=== PATIENT | female | born 1970 | race Asian ===

== ENCOUNTER 2018-10-12 09:23 | Outpatient (CLI) | payer OTHER ==
--- NOTE | 2018-10-12 10:13 | MMO ---
Bilateral MAMMO Bilat Screen DDI. CLINICAL HISTORY: Patient is 48 years old and is seen for screening. The patient has no family history of breast cancer. The patient has no personal history of cancer. VIEWS: The views performed were: bilateral craniocaudal and bilateral mediolateral oblique. This study has been interpreted with the assistance of computer-aided detection. MAMMOGRAM FINDINGS: The breasts are heterogeneously dense, which could obscure a lesion on mammography. There is an equal density, round mass measuring 8 millimeters with circumscribed margins seen in the upper-outer region of the left breast. This likely represents a lymph node, but overlying vessels precludes adequate evaluation. In the right breast, there are no suspicious masses, calcifications or areas of architectural distortion. IMPRESSION: MASS IN THE LEFT BREAST REQUIRES ADDITIONAL EVALUATION. AN ULTRASOUND EXAM IS RECOMMENDED IF NEEDED. SPOT MAGNIFICATION VIEW(S) ARE RECOMMENDED. ACR BI-RADS Category 0 - Incomplete: Need additional imaging evaluation. [facility] will notify the patient of the need for additional imaging services. MAMMOGRAPHY NOTE: 1. A negative mammogram report should not delay a biopsy if a dominant of clinically suspicious mass is present. 2. Approximately 10% to 15% of breast cancers are not detected by mammography. 3. Adenosis and dense breasts may obscure an underlying neoplasm.
== END 2018-10-12 09:24 | disposition home or self-care (01) ==
LOC: SCSMAMMO 09:23
PROVIDERS: ATTEND Family Medicine
DX: Z12.31 Encounter for screening mammogram for malignant neoplasm of breast (principal); N63.20 Unspecified lump in the left breast, unspecified quadrant
CPT/HCPCS: 77067

== ENCOUNTER 2019-01-09 09:09 | Outpatient (CLI) | payer OTHER ==
--- NOTE | 2019-01-09 10:06 | MMO ---
Left Breast MAMMO Unilat Diag DDI LT+JAIME. CLINICAL HISTORY: Patient is 48 years old and is seen for additional evaluation requested from prior study. The patient has no family history of breast cancer. The patient has no personal history of cancer. VIEWS: The views performed were: left craniocaudal spot compression with tomosynthesis; left mediolateral oblique spot compression with tomosynthesis; left mediolateral with tomosynthesis; and left exaggerated craniocaudal spot compression with tomosynthesis. FILMS COMPARED: The present examination has been compared to a prior imaging study performed at [facility] on 10/12/2018. This study has been interpreted with the assistance of computer-aided detection. MAMMOGRAM FINDINGS: The breast is heterogeneously dense, which could obscure a lesion on mammography. There is an intramammary lymph node seen in the upper-outer region of the left breast, correlating with the finding on recent screening examination. There are no suspicious masses, calcifications or areas of architectural distortion. There are no suspicious masses, suspicious calcifications, or new areas of architectural distortion. IMPRESSION: THERE IS NO MAMMOGRAPHIC EVIDENCE OF MALIGNANCY. A ROUTINE FOLLOW-UP MAMMOGRAM IN 1 YEAR IS RECOMMENDED. 3BTHE RESULTS OF THIS EXAM WERE SENT TO THE PATIENT.0B ACR BI-RADS Category 2 - Benign finding MAMMOGRAPHY NOTE: 1. A negative mammogram report should not delay a biopsy if a dominant of clinically suspicious mass is present. 2. Approximately 10% to 15% of breast cancers are not detected by mammography. 3. Adenosis and dense breasts may obscure an underlying neoplasm. Reported by: NINFA SPENCE MD Electonically Signed: [id number]
== END 2019-01-09 09:10 | disposition home or self-care (01) ==
LOC: BICMAMMO 09:09
PROVIDERS: ATTEND Family Medicine
DX: N63.20 Unspecified lump in the left breast, unspecified quadrant (principal)
CPT/HCPCS: G0279

== ENCOUNTER 2020-06-05 08:45 | Outpatient (CLI) | payer OTHER ==
--- NOTE | 2020-06-05 10:00 | ULT ---
US Abdominal: 06/05/2020 9:10 AM CLINICAL HISTORY: Thrombocytopenia. STUDY: Complete abdominal ultrasound COMPARISON: None. FINDINGS: Liver: Size: Normal. Echogenicity: Normal. Contour: Smooth. Mass: 5.5 cm cyst along the left lobe Common bile duct: 3 mm Gallbladder: No shadowing gallstones. There may be a trace amount of sludge. Pancreas: Head, body, and tail appear normal. Inferior vena cava: Normal in caliber Aorta: Normal in caliber Spleen: No focal lesions. Spleen measuring 8.5 cm in length. Right kidney: No pelvicalyceal dilatation. Right kidney measuring 10.0 cm in length. Left kidney: No pericalyceal dilatation. Left kidney measuring 11.3 cm in length. IMPRESSION: Cystic lesion along the left lobe of liver may represent an exophytic cyst emanating from the liver. This is nonspecific and cannot be entirely placed within the liver and appears separate from the right kidney.
== END 2020-06-05 08:46 | disposition home or self-care (01) ==
LOC: BICULT 08:45
PROVIDERS: ATTEND Family Medicine
DX: D69.6 Thrombocytopenia, unspecified (principal); R10.9 Unspecified abdominal pain; K76.89 Other specified diseases of liver
CPT/HCPCS: 93975